=== PATIENT | female | born 1975 | race Caucasian/White ===

== ENCOUNTER → 2020-07-11 11:56 | Outpatient (CLI) | payer BC, SELFPAY | PROVIDERS: PCP Nurse Practitioner; Visit Provider Nurse Practitioner | DX: G47.33 Obstructive sleep apnea (adult) (pediatric) (principal); R53.83 Other fatigue; R40.0 Somnolence | CPT/HCPCS: G0399 ==

== ENCOUNTER → 2021-07-04 12:00 | Outpatient (CLI) | payer BC, SELFPAY | PROVIDERS: PCP Nurse Practitioner; Visit Provider Nurse Practitioner | DX: Z20.822 Contact with and (suspected) exposure to COVID-19 (principal) | CPT/HCPCS: C9803; U0003; U0005 ==

== ENCOUNTER → 2021-08-09 13:17 | Outpatient (CLI) | payer BC, SELFPAY ==
[2021-08-09 14:05] LABS: Adenovirus,PCR Not Detected (NotDetected); Bordetella Pertussis Not Detected (NotDetected); Chlamydophila Pneumoniae, PCR Not Detected (NotDetected); Coronavirus 19, PCR Not Detected (NotDetected); Coronavirus 229E Not Detected (NotDetected); Coronavirus NL63 Not Detected (NotDetected); Coronavirus OC43 Not Detected (NotDetected); Coronovirus HKU1,PCR Not Detected (NotDetected); Human Metapneumovirus Not Detected (NotDetected); Influenza A, PCR Not Detected (NotDetected); Influenza AH1, 2009 Not Detected (NotDetected); Influenza AH1, PCR Not Detected (NotDetected); Influenza AH3,PCR Not Detected (NotDetected); Influenza B, PCR Not Detected (NotDetected); Mycoplasma Pneumoniae, PCR Not Detected (NotDetected); Parainfluenza 1, PCR Not Detected (NotDetected); Parainfluenza 2, PCR Not Detected (NotDetected); Parainfluenza 3, PCR Not Detected (NotDetected); Parainfluenza 4, PCR Not Detected (NotDetected); Respiratory Syncytial Virus Not Detected (NotDetected); Rhinovirus/Enterovirus Not Detected (NotDetected)
[2021-08-09 14:17] LABS: Basophils # 0.1 K/mm3 (0-0.2); Basophils % 1.5 % (0.1-2.0); Eosinophils # 0.4 K/mm3 (0.0-0.4); Eosinophils % 4.5 % (0.1-12.0); Hematocrit 48.1 % (37.0-47.0); Hemoglobin 15.6 g/dL (12.2-16.2); Lymphocytes # 2.6 K/mm3 (0.7-4.5); Lymphocytes % 29.1 % (10-50); Mean Corpuscular HGB Conc 32.5 g/dL (31.8-35.4); Mean Corpuscular Hemoglobin 31.5 pg (27.0-31.2); Mean Platelet Volume 8.9 fl (7.4-10.4); Monocytes # 0.4 K/mm3 (0.1-1.0); Monocytes % 4.7 % (1.7-9.3); Neutrophils # 5.4 K/mm3 (1.8-7.8); Neutrophils % 60.1 % (37.0-80.0); Platelet Count 316 K/mm3 (142-424); Red Blood Count 4.96 M/mm3 (4.20-5.40); Red Cell Distribution Width 13.3 % (11.5-17.5)
== END ==
PROVIDERS: PCP Nurse Practitioner; Visit Provider Nurse Practitioner
DX: Z20.822 Contact with and (suspected) exposure to COVID-19 (principal); J06.9 Acute upper respiratory infection, unspecified
CPT/HCPCS: 36415; 85025; 87581; 87632; 87798; C9803; U0003; U0005

== ENCOUNTER → 2022-03-11 09:35 | Outpatient (CLI) | payer BC, SELFPAY ==
[2022-03-11 18:51] LABS: Chloride 108 mmol/L (98-107); Sodium 141 mmol/L (136-145)
[2022-03-11 18:52] LABS: Potassium 3.6 mmoL/L (3.5-5.1)
[2022-03-11 18:54] LABS: Alanine Aminotransferase 11 U/L (12-78); Albumin/Globulin Ratio 1.4 (1.1-1.8); Alkaline Phosphatase 125 U/L (38-126); Anion Gap 8.6 mEq/L (5-15); Aspartate Amino Transferase 18 U/L (14-36); Bilirubin,Total 0.2 mg/dl (0.2-1.3); Blood Urea Nitrogen 10 mg/dl (7-17); Carbon Dioxide 28 mmol/L (22.0-30.0); Estimated Glomerular Filt Rate 107 ml/min (>60); GFR (African American) 130 ML/MIN (>60); Globulin 2.9 g/dL (1.3-3.2); Total Protein,Serum 6.9 g/dl (6.3-8.2)
[2022-03-11 18:55] LABS: Calcium 9.5 mg/dl (8.4-10.2); Glucose 126 mg/dl (74-100)
[2022-03-11 19:25] LABS: Thyroid Stimulating Hormone 1.19 uIU/mL (0.465-4.68)
== END ==
PROVIDERS: PCP Family Medicine; Visit Provider Family Medicine
DX: I10 Essential (primary) hypertension (principal); R53.83 Other fatigue
CPT/HCPCS: 80053; 84443

== ENCOUNTER → 2023-07-11 23:29 | Outpatient (CLI) | payer BC, SELFPAY ==
[2023-07-11 18:01] LABS: Coronavirus 19, PCR Not Detected (NotDetected); Influenza A, PCR Not Detected (NotDetected); Influenza B, PCR Not Detected (NotDetected)
== END ==
PROVIDERS: PCP Nurse Practitioner; Visit Provider Nurse Practitioner
DX: J06.9 Acute upper respiratory infection, unspecified (principal)
CPT/HCPCS: 87636

== ENCOUNTER 2024-06-03 09:05 | Outpatient (CLI) | payer BC, SELFPAY ==
[2024-06-03 18:34] LABS: Basophils # 0.1 K/mm3 (0-0.2); Basophils % 0.8 % (0.1-2.0); Eosinophils # 0.3 K/mm3 (0.0-0.4); Eosinophils % 3.5 % (0.1-12.0); Hematocrit 47.2 % (37.0-47.0); Hemoglobin 15.3 g/dL (12.2-16.2); Lymphocytes # 2.2 K/mm3 (0.7-4.5); Lymphocytes % 23.6 % (10-50); Mean Corpuscular HGB Conc 32.3 g/dL (31.8-35.4); Mean Corpuscular Hemoglobin 31.8 pg (27.0-31.2); Mean Corpuscular Volume 98.5 fl (81-99); Mean Platelet Volume 10.5 fl (7.4-10.4); Monocytes # 0.5 K/mm3 (0.1-1.0); Monocytes % 5.1 % (1.7-9.3); Neutrophils # 6.2 K/mm3 (1.8-7.8); Platelet Count 289 K/mm3 (142-424); White Blood Count 9.2 K/mm3 (4.8-10.8)
[2024-06-03 19:42] LABS: Albumin Level 4.2 g/dl (3.5-5.0); Chloride 108 mmol/L (98-107); Sodium 140 mmol/L (136-145)
[2024-06-03 19:45] LABS: Alanine Aminotransferase 14 U/L (12-78); Albumin/Globulin Ratio 1.3 (1.1-1.8); Alkaline Phosphatase 120 U/L (38-126); Aspartate Amino Transferase 17 U/L (14-36); Bilirubin,Total 0.5 mg/dl (0.2-1.3); Blood Urea Nitrogen 8 mg/dl (7-17); Calcium 9.2 mg/dl (8.4-10.2); Carbon Dioxide 22 mmol/L (22.0-30.0); Cholesterol 273 mg/dl (140-200); Estimated Glomerular Filt Rate 106 ml/min (>60); GFR (African American) 128 ML/MIN (>60); Globulin 3.2 g/dL (1.3-3.2); Glucose 148 mg/dl (74-100); Total Protein,Serum 7.4 g/dl (6.3-8.2); Triglycerides 282 mg/dl (30-150); VLDL Cholesterol 56 mg/dL (0-40)
[2024-06-03 19:46] LABS: Chol/HDL Ratio 7.6 (1-3.5); HDL Cholesterol 36 mg/dl (40-60)
[2024-06-03 19:56] LABS: Direct LDL Cholesterol 190.98 mg/dL (100-129)
[2024-06-03 20:14] LABS: Thyroid Stimulating Hormone 0.53 uIU/mL (0.465-4.68)
[2024-06-03 21:47] LABS: Creatinine,Urine Random 39 mg/dL (Not Estab.)
[2024-06-03 21:51] LABS: Microalbumin/Creatinine Ratio 39.4
== END 2024-06-03 23:59 | disposition home or self-care (01) ==
LOC: LAB.DROPOF 06-04 12:58
PROVIDERS: PCP Nurse Practitioner; Visit Provider Nurse Practitioner
DX: E78.5 Hyperlipidemia, unspecified (principal); I10 Essential (primary) hypertension; Z72.0 Tobacco use; Z53.20 Procedure and treatment not carried out because of patient's decision for unspecified reasons
CPT/HCPCS: 80050; 80053; 80061; 82043; 82570; 83036; 84443; 85025

== ENCOUNTER 2024-10-15 11:30 | Outpatient (CLI) | payer BC, SELFPAY ==
[2024-10-15 21:24] LABS: Alanine Aminotransferase 17 U/L (12-78); Albumin Level 4.3 g/dl (3.5-5.0); Albumin/Globulin Ratio 1.4 (1.1-1.8); Alkaline Phosphatase 124 U/L (38-126); Aspartate Amino Transferase 18 U/L (14-36); Bilirubin,Total 0.5 mg/dl (0.2-1.3); Blood Urea Nitrogen 9 mg/dl (7-17); Calcium 9.5 mg/dl (8.4-10.2); Carbon Dioxide 25 mmol/L (22.0-30.0); Chloride 107 mmol/L (98-107); Chol/HDL Ratio 3.9 (1-3.5); Cholesterol 179 mg/dl (140-200); Estimated Glomerular Filt Rate 106 ml/min (>60); GFR (African American) 128 ML/MIN (>60); Globulin 3.1 g/dL (1.3-3.2); Glucose 124 mg/dl (74-100); HDL Cholesterol 46 mg/dl (40-60); Sodium 140 mmol/L (136-145); Total Protein,Serum 7.4 g/dl (6.3-8.2); Triglycerides 234 mg/dl (30-150); VLDL Cholesterol 47 mg/dL (0-40)
[2024-10-15 21:34] LABS: Direct LDL Cholesterol 88.51 mg/dL (100-129)
[2024-10-15 21:54] LABS: Thyroid Stimulating Hormone 0.55 uIU/mL (0.465-4.68)
[2024-10-15 21:58] LABS: Creatinine,Urine Random 147 mg/dL (Not Estab.); Hemoglobin A1C 6.3 % (4.0-6.0)
[2024-10-15 22:00] LABS: Microalbumin/Creatinine Ratio 84.2
[2024-10-15 22:12] LABS: Vitamin B12 226 pg/mL (239-931)
== END 2024-10-15 23:59 | disposition home or self-care (01) ==
LOC: LAB.DROPOF 10-17 09:54
PROVIDERS: PCP Nurse Practitioner; Visit Provider Nurse Practitioner
DX: I10 Essential (primary) hypertension (principal); E78.5 Hyperlipidemia, unspecified; I25.10 Atherosclerotic heart disease of native coronary artery without angina pectoris; Z95.1 Presence of aortocoronary bypass graft; R73.01 Impaired fasting glucose
CPT/HCPCS: 80053; 80061; 82043; 82570; 82607; 83036; 84443

== ENCOUNTER 2024-12-26 11:15 | Outpatient (CLI) | payer BC, SELFPAY ==
[2024-12-26 19:12] LABS: Chloride 108 mmol/L (98-107); Potassium 4.3 mmoL/L (3.5-5.1); Sodium 140 mmol/L (136-145)
[2024-12-26 19:15] LABS: Blood Urea Nitrogen 12 mg/dl (7-17); Estimated Glomerular Filt Rate 106 ml/min (>60); GFR (African American) 128 ML/MIN (>60)
[2024-12-26 19:16] LABS: Anion Gap 13.3 mEq/L (5-15); Calcium 9.5 mg/dl (8.4-10.2); Carbon Dioxide 23 mmol/L (22.0-30.0); Glucose 162 mg/dl (74-100)
== END 2024-12-26 23:59 | disposition home or self-care (01) ==
LOC: LAB.DROPOF 22:30
PROVIDERS: PCP Nurse Practitioner Family; Visit Provider Nurse Practitioner Family
DX: R00.2 Palpitations (principal)
CPT/HCPCS: 80048

== ENCOUNTER 2025-04-21 10:35 | Outpatient (CLI) | payer BC, SELFPAY ==
--- OUTSIDE RECORDS SUMMARY | 2017-06-06 17:29 | XMS_ITS | Encounter Summary ---
Author Organization [place] [address] Care Team Providers Care Heating Equipment Repairer Name Role Phone Chan Sim MD Primary Care Provider [phone] Christian Steiner MD Unavailable [phone] Encounter Details Date Type Department Care Team (Late st Contact Info) Description 06/06/2017 5:29 PM EDT Hospital Encounter [facility] [address] [place], [place] [id number] Social History Tobacco Use Types Packs/Day Years Used Date Smoking Tobacco: Former Cigarettes 1 33 1 - 2024 Smokeless Tobacco: Never Alcohol Use Standard Drinks/Week Comments No 0 (1 standard drink = 0.6 oz pur e alcohol) [facility] Utilities Answer Date Recorded In the past 12 months has [employer] electric, gas, oil, or water [employer] threatened to shut off services in your home? No 08/27/2024 Overall Financial Resource Strain (CARDIA) Answe r Date Recorded How hard is it for you to pa y for the very basics like food, housing, medical care, and heating? Not hard at all 08/27/2024 PHQ-2 Answer Date Recorded PHQ-2 Total Score 0 08/27/2024 [facility] [place] of Occupat ional Health - Occupational Stress Questionnaire Answer Date Recorded Do you feel stress - tense, restless, nervous, or anxious, or unable to sleep at night because your mind is troubled all the time - these days? Only a little 08/27/2024 Exercise Vital Sign Answer Date Recorde d On average, how many days pe r week do you engage in moderate to strenuous exercise (like a brisk walk)? 5 days 08/27/2024 On average, how many minutes do you engage in exercise at this level? 30 min 08/27/2024 Hunger Vital Sign Answer Date Recorded Within the past 12 months, y ou worried that your food would run out before you got the money to buy more. Never true 08/27/19 25 Within the past 12 months, t he food you bought just didn't last and you didn't have money to get more. Never true 08/27/2024 [facility] IP Transportation Answer D ate Recorded In the past 12 months, has l ack of reliable transportation kept you from medical appointments, meetings, work or from getting things needed for daily living? No 08/27/2024 Sexually Active Control Partners Comments Yes Male Comments No Sex and Gender Information Value Date Recorded Sex Assigned at Not on file Legal Sex Female 3:45 AM EDT Gender Identity Not on file Sexual Orientation Not on file COVID-19 Exposure Response Date Recorded In the last month, have you been in contact with someone who was confirmed or suspected to have Coronavirus / COVID-19? No / Unsure 07/16/2021 9:31 AM EST documented as of this encounter Functional Status * Alcohol Screening Score Answer Date of Assessment Author 0 08/24/2024 1:00 PM Tio Leonard RN * Drug Screening Score Answer Date of Assessment Author 0 08/24/2024 1:00 PM Tio Leonard RN * Question Answer Date of Assessment Author How often do you have a drin k containing alcohol? 0 08/24/2024 1:00 PM Deion Leonard RN How many drinks containing a lcohol do you have on a typical day when you are drinking? 0 08/24/2024 1:00 PM Deion Leonard RN How often do you have six or more drinks on one occasion? 0 08/24/2024 1:00 PM Elijah Leonard RN AUDIT-C to Determine Rows 4-10 0 08/24/2024 1:00 PM Deion Leonard RN * Is the person deaf or does he/she have serious difficulty hearing? Answer Date of Assessment Author No 07/13/2014 4:12 PM Mariely Watkins RN * Is the person blind or does he/she have serious difficulty seeing even when wearing glasses? Answer Date of Assessment Author No 07/13/2014 4:12 PM Mariely Watkins RN * Does this person have serious difficulty walking or climbing stairs? Answer Date of Assessment Author No 07/13/2014 4:12 PM Mariely Watkins RN * Does this person have difficulty dressing or bathing? Answer Date of Assessment Author No 07/13/2014 4:12 PM Mariely Watkins RN * Because of a physical, mental or emotional condition, does this person have difficulty doing errands alone such as visiting a doctor's office or shopping? Answer Date of Assessment Author No 07/13/2014 4:12 PM Mariely Watkins RN * Question Answer Date of Assessment Author Little interest or pleasure in doing things 0 08/27/2024 12:28 PM Elle Neil BS W Feeling down, depressed, or hopeless 0 08/08 12:28 PM Elle Neil INDUCTION HEATING EQUIPMENT SETTER PHQ-2 Total Score 0 08/27/2024 12:28 PM Elle Neil BSW * PHQ-9 Total Score Answer Date of Assessment Author 0 08/27/2024 12:28 PM Elle Neil INDUCTION HEATING EQUIPMENT SETTER * Suicide Severity Rating Answer Date of Assessment Author No Risk 08/24/2024 8:42 AM Ly Horne RN * [place] Suicide Severity Rating Scale (Q shift for moderate and high) Question Answer Date of Assessment Author 1. In the past month, have y ou wished you were or wished you could go to sleep and not wake up? 0 08/24/2024 8:42 AM Aura Horne RN 2. In the past month, have y ou actually had any thoughts of killing yourself? (If no, skip to question 6) 0 08/24/2024 8:42 AM Aura Horne RN 6. Have you ever done anything, started to do anything, or prepared to do anything to end your life? 0 08/24/2024 8:42 AM Bridget Horne RN documented as of this encounter Mental Status * Because of a physical, mental or emotional condition, does this person have serious difficulty concentrating, remembering or making decisions? Answer Entry Date Author No 07/13/2014 4:12 PM EST Mariely Echols RN documented in this encounter Plan of Treatment Upcoming Encounters Date Type Department Care Team (Late st Contact Info) Description 09/12/2025 9:30 AM EST Office Visit [facility] [place] [id number] Christian Steiner MD [address] [place] [address] documented as of this encounter Goals Goal Patient Goal Type Associated Problems Recent Progress Patient-Stated? Author Blood Pressure < 140/90 Blood Pressure 130/76(2024 9:26 AM EDT) Roberto Carlos Bella MD Maintain a healthy diet, exercise regularly and maintain an ideal body weight General No Roberto Carlos Watkins MD Stay Tobacco Free Lifestyle Roberto Carlos Bella MD documented as of this encounter Visit Diagnoses Not on filedocumented in this encounter Care Teams Heating Equipment Repairer Relationship Specialty Start Date End Date Chan Sim MD [facility] [address] [place] [address] PCP - General Family Medicine 07/15/14 Christian Steiner MD [address] [place] [address] Physician Internal Medicine-Interventional Cardiology 10/24/14 documented as of this encounter
--- OUTSIDE RECORDS SUMMARY | 2025-02-25 13:05 | XMS_ITS | Encounter Summary ---
Author Organization [place] [address] Care Team Providers Care Orthopaedic General Name Role Phone Chan Sim MD Primary Care Provider [phone] Christian Steiner MD Unavailable [phone] Reason for Referral * Echo (Routine) - Authorization Not Needed Specialty Diagnoses / Procedures Referred By Contac t Referred To Contact Radiology Diagnoses ASHD (arteriosclerotic heart disease) Essential hypertension Familial hyperlipidemia Type 2 diabetes mellitus without complication, without long-term current use of insulin (HCC) Procedures EC ECHOCARDIOGRAM COMPLETE W DOPPLER AND COLOR FLOW MAPPING Christian Steiner MD [address] [place] [address] Phone: tel: fax: Referral ID Status Reason Start Date Expiration Date Visits Requested Visits Authorized [id number] Authorization Not Needed 12/27/2024 12/27/2026 1 1 Reason for Visit * Echo (Routine) - Authorization Not Needed Specialty Diagnoses / Procedures Referred By Contac t Referred To Contact Radiology Diagnoses ASHD (arteriosclerotic heart disease) Essential hypertension Familial hyperlipidemia Type 2 diabetes mellitus without complication, without long-term current use of insulin (HCC) Procedures EC ECHOCARDIOGRAM COMPLETE W DOPPLER AND COLOR FLOW MAPPING Christian Steiner MD [address] [place] [address] Phone: tel: fax: Referral ID Status Reason Start Date Expiration Date Visits Requested Visits Authorized [id number] Authorization Not Needed 12/27/2024 12/27/2026 1 1 Encounter Details Date Type Department Care Team (Latest Contact Info) Description 02/25/2025 1:05 PM EDT - 02/25/2025 11:59 PM EDT Hospital Encounter [facility] [address] [place] [address] Drive [address] [place] [address] Christian Steiner MD [address] [place] [address] ASHD (arteriosclerotic heart disease); Essential hypertension; Familial hyperlipidemia; Type 2 diabetes mellitus without complication, without long-term current use of insulin (HCC) Discharge Disposition: Home or Self Care Social History Tobacco Use Types Packs/Day Years Used Date Smoking Tobacco: Former Cigarettes 1 33 1 992 - 2024 Smokeless Tobacco: Never Alcohol Use Standard Drinks/Week Comments No 0 (1 standard drink = 0.6 oz pur e alcohol) [facility] Utilities Answer Date Recorded In the past 12 months has [employer] electric, gas, oil, or water [employer] threatened to shut off services in your home? No 08/27/2024 Overall Financial Resource Strain (CARDIA) Answe r Date Recorded How hard is it for you to pa y for the very basics like food, housing, medical care, and heating? Not hard at all 08/27/2024 PHQ-2 Answer Date Recorded PHQ-2 Total Score 0 08/27/2024 [facility] [place] of Occupat ional Health - Occupational Stress [...] money to get more. Never true 08/27/[address] [facility] IP Transportation Answer D ate Recorded In [...] on file Sexual Orientation Not on file documented as of this encounter Functional Status * Is the person deaf or does [...] No 07/13/2014 4:12 PM Mariely Watkins RN documented as of this encounter Mental Status * Because of a physical, mental or emotional condition, does this person have serious difficulty concentrating, remembering or making decisions? Answer Entry Date Author No 07/13/2014 4:12 PM Mariely Watkins RN documented in this encounter Medications at Time of Discharge albuterol (PROVENTIL HFA;VENTOLIN HFA) 90 mcg/actuation Inhl HFA Aerosol Inhaler INHALE 2 PUFFS INTO THE LUNGS EVERY 4 TO 6 HOURS NEEDED FOR SHORTNESS OF BREATH OR WHEEZING. 11/18/2024 aspirin 81 mg Oral Tablet, ChewableIndications: ASHD (arteriosclerotic heart disease),Essential hypertension,[place] hyperlipidemia,S/P CABG (coronary artery bypass graft) Take 1 Tablet by mouth daily. 90 Tablet 3 10/01/2024 atorvastatin (LIPITOR) 80 mg Oral TabletIndications: HD (arteriosclerotic heart disease),S/P CABG (coronary artery bypass graft),Essential hypertension,[place] hyperlipidemia Take 1 Tablet by mouth nightly. 90 Tablet 1 12/02/2024 carvediloL (COREG) 6.25 mg Oral Tablet Take 1 Tablet by mouth 2 times daily. 60 Tablet 3 11/05/2024 clopidogreL (PLAVIX) 75 mg Oral TabletIndications: HD (arteriosclerotic heart disease),Essential hypertension,[place] hyperlipidemia,S/P CABG (coronary artery bypass graft) Take 1 Tablet by mouth daily. 90 Tablet 3 10/01/2024 cyanocobalamin 100 mcg Oral Tablet Take by mouth daily. ezetimibe (ZETIA) 10 mg Oral TabletIndications:Fa milial hyperlipidemia Take 1 Tablet by mouth daily. 30 Tablet 11 12/02/2024 FARXIGA 10 mg Oral Tablet 12/01/2024 fluticasone propionate (FLONASE) 50 mcg/actuation Nasl [place], Suspension 1 [place] in each nostril daily. losartan (COZAAR) 100 mg Oral TabletIndications:Es sential hypertension Take 1 Tablet by mouth daily. 90 Tablet 1 12/02/2024 ONETOUCH ULTRA TEST Misc Strip TEST BLOOD SUGAR 3 TIMES DAILY AND NEEDED 10/24/2024 documented as of this encounter Discharge Disposition Disposition Code Departure Means Destination Home or Self Care documented in this encounter Plan of Treatment Upcoming Encounters Date Type Department Care Team (Late st Contact Info) Description 09/12/2025 9:30 AM EST Office Visit [facility] [address] [address] Christian Steiner MD [address] [place] [address] documented as of this encounter Goals Goal Patient Goal Type Associated Problems Recent Progress Patient-Stated? Author Blood Pressure < 140/90 Blood Pressure 130/76(2024 9:26 AM EDT) Roberto Carlos Bella MD Maintain a healthy diet, exercise regularly and maintain an ideal body weight General No Roberto Carlos Watkins MD Stay Tobacco Free Lifestyle No Roberto Carlos Watkins MD documented as of this encounter Procedures Procedure Name Priority Date/Time Associated Diagnosis Comments EC ECHOCARDIOGRAM COMPLETE W DOPPLER AND COLOR FLOW MAPPING Routine 02/25/2025 1:54 PM EDT ASHD (arteriosclerotic heart disease) Essential hypertension Familial hyperlipidemia Type 2 diabetes mellitus without complication, without long-term current use of insulin (HCC) documented in this encounter Results * EC ECHOCARDIOGRAM COMPLETE W DOPPLER AND COLOR FLOW MAPPING (02/25/2025 1:54 PM EDT) Ejection Fraction 55-60% PYRAMIS MITRAL REGURGITATION no PYRAMIS AORTIC STENOSIS no PYRAMIS LV DIASTOLIC PLAX 4.2 cm PYRAMIS Anatomical Region Laterality Modality Electrocardiogra phy 02/25/2025 1:10 PM EDT Impressions 02/26/2025 9:01 AM EDT Conclusions * Left ventricular chamber dimension is normal. * Left ventricular function is normal with an estimated ejection fraction of 55-60%. * Left ventricular segmental wall motion is grossly normal, however endocardial definition is limited. * The left ventricular diastolic function is indeterminate. * Right ventricular systolic function is normal. * There is trace tricuspid valve regurgitation. * Unable to estimate pulmonary artery systolic pressure. Narrative Procedure Note Sheryl White DO - 02/26/2025 IMPRESSION Conclusions * Left ventricular chamber dimension is normal. * Left ventricular function is normal with an estimated ejectionfraction of 55-60%. * Left ventricular segmental wall motion is grossly normal, however endocardial definition is limited. * The left ventricular diastolic function is indeterminate. * Right ventricular systolic function is normal. * There is trace tricuspid valve regurgitation. * Unable to estimate pulmonary artery systolic pressure. Christian Steiner MD IMG ECHO ORDERABLES Final Resul t documented in this encounter Visit Diagnoses Diagnosis ASHD (arteriosclerotic heart disease) Coronary atherosclerosis of unspecified type of vessel, [place] or graft Essential hypertension Unspecified essential hypertension Familial hyperlipidemia Other and unspecified hyperlipidemia Type 2 diabetes mellitus without complication, without long-term current use of insulin (HCC) documented in this encounter Care Teams Orthopaedic General Relationship Specialty Start Date End Date Chan Sim MD [address] [facility] [address] [place] [address] PCP - General Family Medicine 07/15/14 Christian Steiner MD [address] [place] [address] Physician Internal Medicine-Interventional Cardiology 10/24/14 documented as of this encounter
--- OUTSIDE RECORDS SUMMARY | 2025-03-15 10:30 | XMS_ITS | Encounter Summary ---
Author Organization [place] [address] Care Team Providers Care Transmission System Operator Name Role Phone Chan Sim MD Primary Care Provider [phone] Christian Steiner MD Unavailable Encounter Details Date Type Department Care Team (Latest Contact Info) Description 03/15/2025 10:30 AM EDT - 03/15/2025 11:59 PM EDT Hospital Encounter [facility] [address] [facility] [place] [address] ASHD (arteriosclerotic heart disease); S/P CABG (coronary artery bypass graft); Familial hyperlipidemia; Type 2 diabetes mellitus without complication, without long-term current use of insulin (HCC); Essential hypertension Discharge Disposition: Home or Self Care Social History Tobacco Use Types Packs/Day Years Used Date Smoking Tobacco: Former Cigarettes 1 33 1 992 - 2024 Smokeless Tobacco: Never Alcohol Use Standard Drinks/Week Comments No 0 (1 standard drink = 0.6 oz pur e alcohol) [facility] Utilities Answer Date Recorded In the past 12 months has [employer] electric, gas, oil, or water company threatened to shut off services in your home? No 08/27/2024 Overall Financial Resource Strain (CARDIA) Answe r Date Recorded How hard is it for you to pa y for the very basics like food, housing, medical care, and heating? Not hard at all 08/27/2024 PHQ-2 Answer Date Recorded PHQ-2 Total Score 0 08/27/2024 [facility] [place] of Occupat ional Health - Occupational Stress [...] money to get more. Never true 08/27/2024 [facility] IP Transportation Answer D ate Recorded In [...] 12/01/2024 fluticasone propionate (FLONASE) 50 mcg/actuation Nasl [place], Suspension 1 [place] in each nostril daily. losartan (COZAAR) 100 [...] 9:30 AM EST Office Visit [facility] [place] [address] [place] [address] [place] [place] [address] Christian Steiner MD [address] [place] [address] [place] [address] documented as of this encounter Goals Goal Patient Goal Type Associated Problems Recent Progress Patient-Stated? Author Blood Pressure < 140/90 Blood Pressure 130/76(2024 9:26 AM EDT) Roberto Carlos Bella MD Maintain a healthy diet, exercise regularly and maintain an ideal body weight General Roberto Carlos Bella MD Stay Tobacco Free Lifestyle Roberto Carlos Bella MD documented as of this encounter Procedures Procedure Name Priority Date/Time Associated Diagnosis Comments LIPID PANEL REFLEX Routine 03/15/2025 10 :41 AM EDT Familial hyperlipidemia C-REACTIVE PROTEIN HIGH SENSITIVITY Routine 03/15/2025 10:41 AM EDT ASHD (arteriosclerotic heart disease) S/P CABG (coronary artery bypass graft) Essential hypertension HEMOGLOBIN A1C Routine 03/15/2025 10:41 AM EDT Type 2 diabetes mellitus without complication, without long-term current use of insulin (HCC) BASIC METABOLIC PANEL Routine 03/15/2025 10:41 AM EDT ASHD (arteriosclerotic heart disease) S/P CABG (coronary artery bypass graft) documented in this encounter Results * C-REACTIVE PROTEIN HIGH SENSITIVITY (03/15/2025 10:41 AM EDT) CRP-HS 1.54 <=3.00 mg/L 03/15/2025 12:58 PM EDT [employer] Blood VENOUS BLOOD / Unknown Venipuncture / Unknown 03/15/2025 10:41 AM EDT 03/15/2025 10:43 AM EDT Narrative [facility] [employer] [place] [facility] - 03/15/2025 12:58 PM EDT hsCRP Level Relative Risk < 1.0 Low 1.0 - 3.0 Average > 3.0 High Christian Steiner MD CHEMISTRY ORDERABLES Final Resu lt Performing Organization Address [facility] Co de Phone Number [facility] [address] , [address] [place] [phone] * (ABNORMAL) HEMOGLOBIN A1C (03/15/2025 10:41 AM EDT) Hgb A1C 7.6(H) 4.2 - 5.6 % 03/15/2025 12:42 PM EDT [facility] [employer] [place] [facility] Est. Avg Glucose 171 mg/dL 03/15/2025 12:42 PM EDT [facility] [employer] [place] [facility] Blood VENOUS BLOOD / Unknown Venipuncture / Unknown 03/15/2025 10:41 AM EDT 03/15/2025 10:43 AM EDT Narrative [facility] [employer] [place] [facility] - 03/15/2025 12:42 PM EDT REFERENCE RANGE: Normal: 4.0-5.6% Pre-diabetes: 5.7-6.4% Provisional diagnosis of diabetes: >6.4% Hgb F>10% and anything which shortens red cell survival, such as hemolytic anemia, or unstable hemoglobin variants such as HbSS, HbSC, or HbCC, will lower the HbA1c value associated with a given level of glycemic control. Christian Steiner MD CHEMISTRY ORDERABLES Final Resu lt Performing Organization Address [facility]/ZIP Co de Phone Number [facility] [address] , [place] [address] * LIPID PANEL REFLEX (03/15/2025 10:41 AM EDT) Cholesterol 143 <200 mg/dL 03/15/2025 12:59 PM EDT [facility] [employer] [place] [facility] Comment: < 200 Desirable 200 - 239 Borderline High >= 240 High Triglyceride 138 <150 mg/dL 03/15/2025 12:59 PM EDT [facility] Comment: < 150 Normal 150 - 199 Borderline High 200 - 499 High >= 500 Very High HDL 42 >=40 mg/dL 03/15/2025 12:59 PM EDT [facility] Comment: > 60 Optimal 40 - 60 Acceptable < 40 Low LDL Calculated 77 <100 mg/dL 03/15/2025 12:59 PM EDT [facility] Comment: < 100 Optimal 100 - 129 Near or above optimal 130 - 159 Borderline High 160 - 189 High >= 190 Very High The National Institutes of Health (NIH) equation is used for all lipid panels that report calculated LDL (LDL-C). Non-HDL-C Calculated 101 <=129 mg/dL 03/15/2025 12:59 PM EDT [facility], [facility] Comment: <130 Desirable 130-159 Above Desirable 160-189 Borderline High 190-219 High >= 220 Very High Fasting Specimen? Yes None 025 12:59 PM EDT [facility], [facility] Blood VENOUS BLOOD / Unknown Venipuncture / Unknown 03/15/2025 10:41 AM EDT 03/15/2025 10:43 AM EDT us Christian Steiner MD CHEMISTRY ORDERABLES Final Resu lt [facility] [address] [facility], [place] [address] * (ABNORMAL) BASIC METABOLIC PANEL (03/15/2025 10:41 AM EDT) Sodium 140 136 - 145 mmol/L 03/15/2025 12:59 PM EDT [facility] Potassium 3.9 3.5 - 5.0 mmol/L 03/15/2025 12:59 PM EDT [facility] Chloride 105 98 - 107 mmol/L 03/15/2025 12:59 PM EDT [facility] Total CO2 24 22 - 29 mmol/L 03/15/2025 12:59 PM EDT [facility] Anion Gap 11 7 - 16 mmol/L 03/15/2025 12:59 PM EDT [facility] Calcium 9.5 8.6 - 10.4 mg/dL 03/15/2025 12:59 PM EDT [facility], [facility] Glucose Lvl 158(H) 70 - 99 mg/dL 03/15/2025 12:59 PM EDT [facility], [facility] BUN 10 6 - 20 mg/dL 03/15/2025 12:59 PM EDT [facility], [facility] Creatinine 0.55 0.51 - 1.30 mg/dL 03/15/2025 12:59 PM EDT [facility], [facility] eGFR (CKD-EPIcr 2020) 111 >=60 mL/min/1.7 3 m2 03/15/2025 12:59 PM EDT [facility], [facility] Comment:Estimated GFR was ca lculated using the CKD-EPIcr (2020) equation refit without race. The equation is recommended by the National Kidney Foundation - [place] [employer] of Nephrology Task Force. Blood VENOUS BLOOD / Unknown Venipuncture / Unknown 03/15/2025 10:41 AM EDT 03/15/2025 10:43 AM EDT us Christian Steiner MD CHEMISTRY ORDERABLES Final Resu lt [address] , [place] [address] documented in this encounter Visit Diagnoses Diagnosis ASHD (arteriosclerotic heart disease) Coronary atherosclerosis of unspecified type of vessel, [place] or graft S/P CABG (coronary artery bypass graft) Postsurgical aortocoronary bypass status Familial hyperlipidemia Other and unspecified hyperlipidemia Type 2 diabetes mellitus without complication, without long-term current use of insulin (HCC) Essential hypertension Unspecified essential hypertension documented in this encounter Orders Lab Orders Without Results Count Last Ordered D ate First Ordered Date BASIC METABOLIC PANEL 1 03/15/2025 C-REACTIVE PROTEIN HIGH SENSITIVITY 1 03/15 HEMOGLOBIN A1C 1 03/15/2025 LIPID PANEL REFLEX 1 03/15/2025 documented in this encounter Care Teams Transmission System Operator Relationship Specialty Start Date End Date Chan Sim MD [address] [facility] [address] [place] [address] PCP - General Family Medicine 07/15/14 Christian Steiner MD [address] [place] [address] Physician Internal Medicine-Interventional Cardiology 10/24/14 documented as of this encounter
--- OUTSIDE RECORDS SUMMARY | 2025-03-21 09:45 | XMS_ITS | Encounter Summary ---
Author Organization [facility] [place] [address] Care Team Providers Care Inside Sales Supervisor Name Role Phone Chan Sim MD Primary Care Provider [phone] Christian Steiner MD Unavailable [phone] Reason for Visit * Reason Comments Follow-up 3 mo chk labs prior Encounter Details Date Type Department Care Team (Latest Contact Info) Description 03/21/2025 9:45 AM EDT Office Visit [facility] [place] [address] [place] [address] Christian Steiner MD [address] [place] [address] ASHD (arteriosclerotic heart disease) (Primary Dx); Essential hypertension; Familial hyperlipidemia Social History Tobacco Use Types Packs/Day Years Used Date Smoking Tobacco: Former Cigarettes 1 33 1 992 - 2024 Smokeless Tobacco: Never Tobacco Cessation:Counseling Given: No Alcohol Use Standard Drinks/Week Comments No 0 (1 standard drink = 0.6 oz pur e alcohol) [facility] Utilities Answer Date Recorded In the past 12 months has [employer], gas, oil, or water company threatened to shut off services in your home? No 08/27/2024 Overall Financial Resource Strain (CARDIA) Answe r Date Recorded How hard is it for you to pa y for the very basics like food, housing, medical care, and heating? Not hard at all 08/27/2024 PHQ-2 Answer Date Recorded PHQ-2 Total Score 0 08/27/2024 [facility] Occupat ional Health - Occupational Stress [...] money to get more. Never true 08/27/2024 [facility] IP Transportation Answer D ate Recorded [...] on file documented as of this encounter Last Filed Vital Signs Vital Sign Reading Time Taken Comments Blood Pressure 130/76 03/21/2025 9:26 AM EDT Pulse 82 03/21/2025 9:26 AM EDT Temperature - - Respiratory Rate - - Oxygen Saturation 98% 03/21/2025 9:26 AM EDT Inhaled Oxygen Concentration - - Weight 85.7 kg (189 lb) 03/21/2025 9:26 AM EDT Height 172.7 cm (5' 8 ) 03/21/2025 9:26 AM EDT Body Mass Index 28.74 03/21/2025 9:26 AM EDT documented in this encounter Functional Status * Is the [...] Mariely Watkins RN documented in this encounter Progress Notes * Christian Steiner MD - 03/21/2025 9:45 AM EDT Subjective: Patient ID: Gricelda Enciso is a 49 y.o. female. Chief Complaint Patient presents with Follow-up 3 mo chk labs prior Ms. Enciso is here for a scheduled routine follow-up visit No chest, shoulder, arm, back, or jaw pain. None Their chronic cardiac conditions are: Problem List Cardiology Problems Chest pain Hypertension Mixed hyperlipidemia Coronary artery disease involving [place] coronary artery of [place] heart with unstable angina pectoris (HCC) Coronary artery occlusion (HCC) Social History Tobacco Use Smoking Status Former Current packs/day: 0.00 Average packs/day: 1 pack/day for 33.0 years (33.0 ttl pk-yrs) Types: Cigarettes Start date: 1991 Quit date: 2024 Years since quittin.6 Smokeless Tobacco Never Current Outpatient Medications Medication Sig Dispense Refill albuterol (PROVENTIL HFA;VENTOLIN HFA) 90 mcg/actuation Inhl HFA Aerosol Inhaler INHALE 2 PUFFS INTO THE LUNGS EVERY 4 TO 6 HOURS NEEDED FOR SHORTNESS OF BREATH OR WHEEZING. aspirin 81 mg Oral Tablet, Chewable Take 1 Tablet by mouth daily. 90 Tablet 3 atorvastatin (LIPITOR) 80 mg Oral Tablet Take 1 Tablet by mouth nightly. 90 Tablet 1 carvediloL (COREG) 6.25 mg Oral Tablet Take 1 Tablet by mouth 2 times daily. 60 Tablet 3 clopidogreL (PLAVIX) 75 mg Oral Tablet Take 1 Tablet by mouth daily. 90 Tablet 3 cyanocobalamin 100 mcg Oral Tablet Take by mouth daily. ezetimibe (ZETIA) 10 mg Oral Tablet Take 1 Tablet by mouth daily. 30 Tablet 11 FARXIGA 10 mg Oral Tablet fluticasone propionate (FLONASE) 50 mcg/actuation Nasl [place], Suspension 1 [place] in each nostril daily. losartan (COZAAR) 100 mg Oral Tablet Take 1 Tablet by mouth daily. 90 Tablet 1 ONETOUCH ULTRA TEST Misc Strip TEST BLOOD SUGAR 3 TIMES DAILY AND NEEDED No current facility-administered medications for this visit. Patients past medical, family and social histories were reviewed and updated. There were no changesexcept as noted. Review of Systems Constitutional: Negative for weight loss. Cardiovascular: Negative for chest pain, dyspnea on exertion, irregular heartbeat and palpitations. All other systems reviewed and are negative. Objective: Patient Vitals for the past 24 hrs: Pulse BP BP Location Patient Position 03/21/25 0926 82 130/76 Left arm Sitting Body mass index is 28.74 kg/m??. Physical Exam Constitutional: She appears healthy. HENT: Nose: No nasal discharge. Eyes: Conjunctivae are normal. Neck: No JVD present. Cardiovascular: Normal rate, regular rhythm, S1 normal, S2 normal and normal heart sounds. Exam reveals no S3. No murmur heard. Pulmonary/Chest: Breath sounds normal. She has no wheezes. She has no rales. Abdominal: She exhibits no distension. Musculoskeletal: General: No edema. Neurological: She is alert. Skin: Skin is warm. No pallor. Relevant Studies No results found for this visit on 03/21/25. 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 Familial hyperlipidemia ldl 214, lp (a) normal, - Ldl 77 continue lipitor 80 and zetia 3. HTN continue coreg 6.25 mg po bid, losartan 4. Tobacco abuse- now quit 5. AODM 6. Palpitations with 3% PVCs holter 2024 Losing weight- will see how ldl improves. Pt wants to try ozempic- I encouraged this for CV risk reduction. Fu in 6 months lipid panel bmp prior to visit documented in this encounter Miscellaneous Notes * Patient Instructions - Christal Cervantes CMA - 03/21/2025 9:45 AM EDT You may receive a survey via phone, mail or e-mail, regarding your visit today. Your feedback is important to us. We ask that you please take a few minutes to fill out the survey. You were assisted by Dr. Steiner and DEYSI Siegel. Thank You for choosing [facility]. We sincerely thank you for the opportunity to be a part of your care. BLOOD WORK INSTRUCTIONS Blood work needs to be completed one week prior to return. Nothing to eat or drink for 8 hours prior to draw. May drink water prior to draw. You can have your labs done at any [facility] lab. Labs orders are in the computer. Important information: -Labs have been ordered. Please have completed 1 week prior to next office visit - Please return in [address] Steiner If you have any additional questions or concerns, please reach out to us via LXSNt or by phone at [phone]. * Addendum Note - Christal Cervantes CMA - 03/21/2025 9:45 AM EDTAddended by: CHRISTAL CERVANTES on: 03/21/2025 09:49 AM Modules accepted: Orders documented in this encounter Plan of Treatment Upcoming Encounters Date Type Department Care Team (Late st Contact Info) Description 09/12/2025 9:30 AM EST Office Visit [facility] [address] [address] Christian Steiner MD [address] [place] [id number] Scheduled Orders Name Type Priority Associated Diagnoses Orde r Schedule LIPID PANEL REFLEX Lab Routine ASHD (arteriosclerotic heart disease) Essential hypertension Familial hyperlipidemia 1 Occurrences starting 03/21/2025 until 03/21/2026 BASIC METABOLIC PANEL Lab Routine ASHD (arteriosclerotic heart disease) Essential hypertension Familial hyperlipidemia 1 Occurrences starting 03/21/2025 until 03/21/2026 documented as of this encounter Goals Goal Patient Goal Type Associated Problems Recent Progress Patient-Stated? Author Blood Pressure < 140/90 Blood Pressure 130/76(2024 9:26 AM EDT) Roberto Carlos Bella MD Maintain a healthy diet, exercise regularly and maintain an ideal body weight General Roberto Carlos Bella MD Stay Tobacco Free Lifestyle Roberto Carlos Bella MD documented as of this encounter Visit Diagnoses Diagnosis ASHD (arteriosclerotic heart disease)- Primary Coronary atherosclerosis of unspecified type of vessel, [place] or graft Essential hypertension Unspecified essential hypertension Familial hyperlipidemia Other and unspecified hyperlipidemia documented in this encounter Care Teams Inside Sales Supervisor Relationship Specialty Start Date End Date Chan Sim MD [facility] [address] [place] [address] PCP - General Family Medicine 07/15/14 Christian Steiner MD [address] [place] [phone] Physician Internal Medicine-Interventional Cardiology 10/24/14 documented as of this encounter
[2025-04-21 15:33] LABS: Hematocrit 45.0 % (37.0-47.0); Hemoglobin 14.8 g/dL (12.2-16.2); Immature Granulocytes % 0.2 %; Mean Corpuscular HGB Conc 32.9 g/dL (31.8-35.4); Mean Corpuscular Hemoglobin 30.6 pg (27.0-31.2); Mean Corpuscular Volume 93.2 fl (81-99); Nucleated Red Blood Cells % 0 %; Platelet Count 238 K/mm3 (142-424); Red Blood Count 4.83 M/mm3 (4.20-5.40); Red Cell Distribution Width-SD 45.1 fL; White Blood Count 5.9 K/mm3 (4.8-10.8)
[2025-04-21 18:11] LABS: Alanine Aminotransferase 17 U/L (12-78); Albumin Level 4.3 g/dl (3.5-5.0); Albumin/Globulin Ratio 1.3 (1.1-1.8); Alkaline Phosphatase 159 U/L (38-126); Anion Gap 11.0 mEq/L (5-15); Aspartate Amino Transferase 22 U/L (14-36); Bilirubin,Total 0.8 mg/dl (0.2-1.3); Blood Urea Nitrogen 10 mg/dl (7-17); Calcium 9.3 mg/dl (8.4-10.2); Carbon Dioxide 27 mmol/L (22.0-30.0); Chloride 104 mmol/L (98-107); Cholesterol 177 mg/dl (140-200); Creatinine,Serum 0.60 mg/dl (0.52-1.04); Estimated Glomerular Filt Rate 106 ml/min (>60); GFR (African American) 128 ML/MIN (>60); Globulin 3.2 g/dL (1.3-3.2); Glucose 155 mg/dl (74-100); HDL Cholesterol 49 mg/dl (40-60); Potassium 4.0 mmoL/L (3.5-5.1); Sodium 138 mmol/L (136-145); Total Protein,Serum 7.5 g/dl (6.3-8.2); Triglycerides 157 mg/dl (30-150)
[2025-04-21 18:47] LABS: Hemoglobin A1C 7.6 % (4.0-6.0)
[2025-04-21 19:01] LABS: Vitamin B12 > 1000 pg/mL (239-931)
--- OUTSIDE RECORDS SUMMARY | 2025-04-22 10:47 | XMS_ITS | Patient Health Record ---
Author Organization [facility] Address [address] [facility] [address] [id number] Care Team Providers Care Snuff Blender Name Role Phone Tio Sim Primary Care Provider Allergies No Known Allergies Reason For Referral No Information Medications Medication SIG (Take, Route, Frequency, Duration) Notes Start Date End Date Status methylPREDNISolone 4 MG as directed - 6 tabs on day 1, 5 tabs on day 2, 4 tabs on day 3, 3 tabs on day 4, 2 tabs on day 5, 1 tab on day 6 orally 08/09/2021 Active amLODIPine Besylate 10 MG 1 tab(s) orally once a day Active B-12 1000 MCG 1 tab(s) orally once a day 07/09/2018 Active Azithromycin 250 MG 2 tablets on the first day, then 1 tablet daily for 4 days orally 08/09/2021 Active Atenolol 50 MG 1 tab(s) orally once a day; Duration: 30 day(s) Active CoQ-10 100 MG 1 cap(s) orally once a day 07/03/2020 Active Xhmkoxldr-Wpwuicfx-DE 30-2-10 MG/5ML 5 mL orally 4 times a day as needed for cough 08/09/2021 Active Rosuvastatin Calcium 10 MG 1 tab(s) orally once a day; Duration: 30 day(s) 07/03/2020 Active buPROPion HCl ER (SR) 150 MG Take 1 tablet by mouth once daily.; Duration: 30 Active CareTouch CPAP & BIPAP Hose 1 DIRECTED; Duration: [address]24 DAYS nasal continuous positive airway pressure, AutoPAP 6/16cm with a heated humidifier *Please review and pick correct strength-formula tion from Medispan options. If intended option is not shown, discontinue and re 09/07/2020 Not-Taking Vitamin D3 125 MCG (5000 UT) 1 tab(s) orally once a day; Duration: 30 day(s) 07/09/2018 Active CPAP MASK DIRECTED *Please review for potential replacement for e-prescription and drug interaction check* 09/07/2020 Not-Taking Immunizations Vaccine Route Administration Date Status Comme nts Tetanus Tdap-Adacel (over 7yrs) IM Intramuscular 01/23/2020 Administered Problems Problem Type SNOMED Code ICD Code Onset Dates Problem Status W/U Status Risk Notes Problem Vitamin D deficiency (17641399) Vitamin D deficiency (E55.9) Active confirmed Problem Vitamin B12 deficiency (360195604) Vitamin B12 deficiency (E53.8) Active confirmed Problem Essential hypertension (84084019) Essential hypertension (I10) Active confirmed Problem Anxiety (66014030) Situational anxiety (F41.8) Active confirmed Problem Obstructive sleep apnea syndrome (76064219) ABHISHEK (obstructive sleep apnea) (G47.33) Active confirmed Problem Hyperlipidaemia (34257233) Hyperlipidemia, unspecified hyperlipidemia type (E78.5) Active confirmed Problem Tobacco use (397354736) Tobacco use disorder (F17.200) Active confirmed Problem Somnolence (07100709) Has daytime drowsiness (R40.0) Active confirmed Plan Of Treatment No Information Insurance Providers Payer Name Payer Address Payer Phone Subscriber Number Group Number Insured Name Patient Relationship to Insured Coverage Start Date Coverage End Date [facility] [address] [place] [address] [id number] Malia Enciso Self - patient is the insured Medications Administered Medication Instructions Date of Administration Dosage Notes B-12 01/31/2020 1 mL B-12 02/07/2020 1 mL B-12 02/14/2020 1 mL Medical (General) History Surgical History Surgery Date(Month/Year) gallbladder
--- OUTSIDE RECORDS SUMMARY | 2025-04-22 10:47 | XMS_ITS | Encounter Summary ---
Author Organization [place] [address] Care Team Providers Care Finance Director Name Role Phone Chan Sim MD Primary Care Provider [phone] Christian Steiner MD Unavailable [phone] Reason for Visit * Reason Onset Date Comments Results 02/26/2025 Encounter Details Date Type Department Care Team (Latest Contact Info) Description 02/26/2025 Results Follow-Up [facility] [address] [place] [address] Lesli Giraldo, SCHEDULER MAINTENANCE [address] [place] [address] EC ECHOCARDIOGRAM COMPLETE W DOPPLER AND COLOR FLOW MAPPING Social History Tobacco Use Types Packs/Day Years Used Date Smoking Tobacco: Former Cigarettes 1 33 1 - 2024 Smokeless Tobacco: Never Alcohol Use Standard Drinks/Week Comments No 0 (1 standard drink = 0.6 oz pur e alcohol) [facility] Utilities Answer Date Recorded In the past 12 months has e electric, gas, oil, or water company threatened to shut off services in your home? No 08/27/2024 Overall Financial Resource Strain (CARDIA) Answe r Date Recorded How hard is it for you to pa y for the very basics like food, housing, medical care, and heating? Not hard at all 08/27/2024 PHQ-2 Answer Date Recorded PHQ-2 Total Score 0 08/27/2024 [facility] of Occupat ional Health - Occupational Stress [...] money to get more. Never true 08/27/2024 [facility] IP Transportation Answer D ate Recorded In [...] Mariely Watkins RN documented in this encounter Plan of Treatment Upcoming Encounters Date Type Department Care Team (Late st Contact Info) Description 09/12/2025 9:30 AM EST Office Visit [facility] [address] [address] Christian Steiner MD [address] [place] [phone] documented as of this encounter Goals Goal Patient Goal Type Associated Problems Recent Progress Patient-Stated? Author Blood Pressure < 140/90 Blood Pressure 130/76(2024 9:26 AM EDT) Roberto Carols Bella MD Maintain a healthy diet, exercise regularly and maintain an ideal body weight General No Roberto Carlos Watkins MD Stay Tobacco Free Lifestyle Roberto Carlos Bella MD documented as of this encounter Visit Diagnoses Not on filedocumented in this encounter Care Teams Finance Director Relationship Specialty Start Date End Date Chan Sim MD [facility] [place] [address] [place] [address] PCP - General Family Medicine 07/15/14 Christian Steiner MD [address] [place] [phone] Physician Internal Medicine-Interventional Cardiology 10/24/14 documented as of this encounter
--- OUTSIDE RECORDS SUMMARY | 2025-04-22 10:47 | XMS_ITS | Encounter Summary ---
Author Organization [facility] [place] [place] [address] Care Team Providers Care Yeast Culture Developer Name Role Phone Chan Sim MD Primary Care Provider [phone] Christian Steiner MD Unavailable [phone] Encounter Details Date Type Department Care Team (Latest Contact Info) Description 03/21/2025 Travel Social History Tobacco Use Types Packs/Day Years Used Date Smoking Tobacco: Former Cigarettes 1 33 1 992 - 2024 Smokeless Tobacco: Never Alcohol Use Standard Drinks/Week Comments No 0 (1 standard drink = 0.6 oz pur e alcohol) [facility] Utilities Answer Date Recorded In the [...] Date Recorded PHQ-2 Total Score 0 08/27/2024 [facility] of Occupat ional Health - Occupational Stress [...] money to get more. Never true 08/27/2024 [facility] IP Transportation Answer D ate Recorded [...] AM EST Office Visit [facility] [address] [place] [address] [place] [id number] Christian Steiner MD [address] [place] [address] [place] [id number] documented as of this encounter Goals [...] on filedocumented in this encounter Care Teams Yeast Culture Developer Relationship Specialty Start Date End Date Chan Sim MD [address] [facility] [address] [place] [address] PCP - General Family Medicine 07/15/14 Christian Steiner MD [address] [place] [address] Physician Internal Medicine-Interventional Cardiology 10/24/14 documented as of this encounter
--- OUTSIDE RECORDS SUMMARY | 2025-04-22 10:47 | XMS_ITS | Encounter Summary ---
Author Organization [place] [address] Care Team Providers Care Sales And Marketing Associate Name Role Phone Chan Sim MD Primary Care Provider [phone] Christian Steiner MD Unavailable Reason for Visit * Reason Onset Date Comments Medication Question 04/08/2025 SWP, rayo Mcgill to use inhaler Encounter Details Date Type Department Care Team (Late st Contact Info) Description 04/08/2025 Telephone [facility] [place] [address] [place] [address] Christian Steiner MD [address] [place] [address] Medication Question (SWPmarilyn ok to use inhaler) Social History Tobacco Use Types Packs/Day Years Used Date Smoking Tobacco: Former Cigarettes 1 33 1 992 - 2024 Smokeless Tobacco: Never Alcohol Use Standard Drinks/Week Comments No 0 (1 standard drink = 0.6 oz pur e alcohol) [facility] Utilities Answer Date Recorded In the past 12 months has [facility] [facility] electric, gas, oil, or water company threatened to shut off services in your home? No 08/27/2024 Overall Financial Resource Strain (CARDIA) Answe r Date Recorded How hard is it for you to pa y for the very basics like food, housing, medical care, and heating? Not hard at all 08/27/2024 PHQ-2 Answer Date Recorded PHQ-2 Total Score 0 08/27/2024 [facility] of Occupat ional Health - Occupational [...] money to get more. Never true 08/27/2024 [facility] IP Transportation Answer D ate Recorded In [...] Mariely Watkins RN documented in this encounter Miscellaneous Notes * Telephone Encounter - Christal Cervantes CMA - 04/09/2025 12:32 PM EDT Noted. Closing encounter. * Telephone Encounter - Cara Roberts - 04/09/2025 12:29 PM EDT SWP informed patient per JANUARY Clark OK to use inhaler. * Telephone Encounter - Christal Cervantes CMA - 04/09/2025 11:30 AM EDT Called pt to inform that they are able to use inhaler per JANUARY Clark. No answer. HIPAA compliant VMLTCB * Telephone Encounter - Jazmine Pinzon - 04/08/2025 12:04 PM EDT Patient is calling to ask if she can take her inhaler Proventil Please call and advise documented in this encounter Plan of Treatment Upcoming Encounters Date Type Department Care Team (Late st Contact Info) Description 09/12/2025 9:30 AM EST Office Visit [facility] [address] [place] [phone] Christian Steiner MD [address] [place] [address] documented as of this encounter Goals Goal [...] on filedocumented in this encounter Care Teams Sales And Marketing Associate Relationship Specialty Start Date End Date Chan Sim MD [address] [facility] [address] [place] [address] PCP - General Family Medicine 07/15/14 Christian Steiner MD [address] [place] [address] Physician Internal Medicine-Interventional Cardiology 10/24/14 documented as of this encounter
--- OUTSIDE RECORDS SUMMARY | 2025-04-22 10:47 | XMS_ITS | Encounter Summary ---
Author Organization [place] [address] Care Team Providers Care Charge Nurse Name Role Phone Chan Sim MD Primary Care Provider [phone] Christian Steiner MD Unavailable [phone] Encounter Details Date Type Department Care Team (Late st Contact Info) Description 06/07/2017 Lab Requisition [facility] [place] [address] Felix Hernandez, DPM [address] [facility], [address] [place] [address] Cellulitis of toe of right foot Social History Tobacco Use Types Packs/Day Years Used Date Smoking Tobacco: Every Day Cigarettes Smokeless Tobacco: Never Alcohol Use Standard Drinks/Week Comments No 0 (1 standard drink = 0.6 oz pur e alcohol) Sexually Active Control Partners Comments Yes Male [...] 9:30 AM EST Office [place] [address] Christian Steiner MD [address] [place] [address] documented as of this encounter Goals Goal [...] Procedure Name Priority Date/Time Associated Diagnosis Comments WOUND CULTURE (STAIN INCLUDED) STAT 06/07/2017 9:10 AM EDT Cellulitis of toe of right foot documented in this encounter Results * (ABNORMAL) WOUND CULTURE (06/07/2017 9:10 AM EDT) Culture Positive Growth(A) 2016 4:18 PM EDT [facility] Culture Abundant growth of Staphylococcus lugdunensis SUSCEPTIBI LITY RESULT 06/10/2017 4:18 PM EDT [facility] Stain No WBCs 06/10/2017 4:18 PM EDT [facility] Stain Moderate Gram positive cocci 06/10/2017 4:18 PM EDT [facility] Stain Rare Gram positive rods, suggestive of diphtheroids 06/10/2017 4:18 PM EDT [facility] Swab OTHER SPECIMEN TYPE / Unknown 06/07/2017 9:10 AM EDT 06/07/2017 9:11 AM EDT Narrative Organism Antibiotic Method Susceptibility Staphylococcus lugdunensis Ampicillin SUSCEPTIBILITY RESULT 4 ug/mL: Resistant Staphylococcus lugdunensis Cefazolin SUSCEPTIBILITY RESULT <=4 ug/mL: Susceptible Staphylococcus lugdunensis Ceftaroline SUSCEPTIBILITY RESULT Staphylococcus lugdunensis Ceftriaxone SUSCEPTIBILITY RESULT <=4 ug/mL: Susceptible Staphylococcus lugdunensis Chloramphenicol SUSCEPTIBILITY RESULT <=8 ug/mL: Susceptible Staphylococcus lugdunensis Ciprofloxacin SUSCEPTIBILITY RESULT <=1 ug/mL: Susceptible Staphylococcus lugdunensis Clindamycin SUSCEPTIBILITY RESULT >4 ug/mL: Resistant Staphylococcus lugdunensis Daptomycin SUSCEPTIBILITY RESULT <=0.25 ug/mL: Susceptible Staphylococcus lugdunensis Erythromycin SUSCEPTIBILITY RESULT >4 ug/mL: Resistant Staphylococcus lugdunensis Gentamicin SUSCEPTIBILITY RESULT <=1 ug/mL: Susceptible Staphylococcus lugdunensis Gentamicin synergy SUSCEPTIBILITY RESULT Staphylococcus lugdunensis Levofloxacin SUSCEPTIBILITY RESULT <=0.5 ug/mL: Susceptible Staphylococcus lugdunensis Linezolid SUSCEPTIBILITY RESULT <=0.5 ug/mL: Susceptible Staphylococcus lugdunensis Moxifloxacin SUSCEPTIBILITY RESULT <=0.25 ug/mL: Susceptible Staphylococcus lugdunensis Nitrofurantoin SUSCEPTIBILITY RESULT Staphylococcus lugdunensis Oxacillin SUSCEPTIBILITY RESULT 0.5 ug/mL: Susceptible Staphylococcus lugdunensis Penicillin SUSCEPTIBILITY RESULT 8 ug/mL: Resistant Staphylococcus lugdunensis Rifampin SUSCEPTIBILITY RESULT <=1 ug/mL: Susceptible Staphylococcus lugdunensis Streptomycin synergy SUSCEPTIBILITY RESULT Staphylococcus lugdunensis Synercid SUSCEPTIBILITY RESULT <=0.25 ug/mL: Susceptible Staphylococcus lugdunensis Tetracycline SUSCEPTIBILITY RESULT <=2 ug/mL: Susceptible Staphylococcus lugdunensis Tigecycline SUSCEPTIBILITY RESULT Staphylococcus lugdunensis Trimethoprim/Sulfameth oxazole SUSCEPTIBILITY RESULT <=0.5/9.5 ug/mL: Susceptible Staphylococcus lugdunensis Vancomycin SUSCEPTIBILITY RESULT 0.5 ug/mL: Susceptible Comment: Rifampin and Gentamicin should not be used alone for antimicrobial therapy. For methicillin resistant staphylococci, ciprofloxacin should also not be used alone. Felix Hernandez DPM MICROBIOLOGY - GENERAL ORD ERABLES Final Result [facility] [address] [place] [id number] documented in this encounter Visit Diagnoses Diagnosis Cellulitis of toe of right foot Cellulitis and abscess of toe, unspecified documented in this encounter Care Teams Charge Nurse Relationship Specialty Start Date End Date Chan Sim MD [address] [place] [address] [address] [place] [address] PCP - General Family Medicine 07/15/14 Christian Steiner MD [address] [place] [phone] Physician Internal Medicine-Interventional Cardiology 10/24/14 documented as of this encounter
--- OUTSIDE RECORDS SUMMARY | 2025-04-22 10:47 | XMS_ITS | Encounter Summary ---
Author Organization [facility] [place] [address] Care Team Providers Care Handbag Frames Inspector Name Role Phone Chan Sim MD Primary Care Provider [phone] Christian Steiner MD Unavailable [phone] Encounter Details Date Type Department Care Team (Late st Contact Info) Description 03/18/2025 Results Follow-Up [facility] [address] [place] [address] Lesli Giraldo, CURATORIAL ASSISTANT [address] [place] [address] BASIC METABOLIC PANEL, LIPID PANEL REFLEX, HEMOGLOBIN A1C, C-REACTIVE PROTEIN HIGH SENSITIVITY Social History Tobacco Use Types Packs/Day Years Used Date Smoking Tobacco: Former Cigarettes 1 33 1 992 - 2024 Smokeless Tobacco: Never Alcohol Use Standard Drinks/Week Comments No 0 (1 standard drink = 0.6 oz pur e alcohol) [facility] Utilities Answer Date Recorded In the [...] Date Recorded PHQ-2 Total Score 0 08/27/2024 [facility] [place] [facility] - Occupational Stress [...] money to get more. Never true 08/27/2024 [facility] IP Transportation Answer D ate Recorded [...] 9:30 AM EST Office Visit [facility] [address] [id number] Christian Steiner MD [address] [place] [id number] documented as of this encounter Goals Goal [...] on filedocumented in this encounter Care Teams Handbag Frames Inspector Relationship Specialty Start Date End Date Chan Sim MD [facility] [address] [place] [address] PCP - General Family Medicine 07/15/14 Christian Steiner MD [address] [place] [address] Physician Internal Medicine-Interventional Cardiology 10/24/14 documented as of this encounter
--- OUTSIDE RECORDS SUMMARY | 2025-04-22 10:47 | XMS_ITS | Clinical Summary ---
Author Organization [facility] Address [address] [place] [address] Phone Care Team Providers Care Monitoring Coordinator Name Role Phone Chan iSm MD Primary Care Provider [phone] Christian Steiner MD Unavailable [phone] Allergies Active Allergy Reactions Criticality Noted Date Comments Fexofenadine-Pseudoephedrine Fvq-Xcegjahxd-Fkikcoqayqopb Cetirizine Medications aspirin 81 mg Oral Tablet, ChewableIndication s:ASHD (arteriosclerotic heart disease),Essential hypertension,Famil ial hyperlipidemia,S/P CABG (coronary artery bypass graft) Take 1 Tablet by mouth daily. 90 Tablet 3 5 Active clopidogreL (PLAVIX) 75 mg Oral TabletIndications: ASHD (arteriosclerotic heart disease),Essential hypertension,Famil ial hyperlipidemia,S/P CABG (coronary artery bypass graft) Take 1 Tablet by mouth daily. 90 Tablet 3 5 Active cyanocobalamin 100 mcg Oral Tablet Take by mouth daily. Active carvediloL (COREG) 6.25 mg Oral Tablet Take 1 Tablet by mouth 2 times daily. 60 Tablet 3 5 Active ONETOUCH ULTRA TEST Misc Strip TEST BLOOD SUGAR 3 TIMES DAILY AND NEEDED 5 Active FARXIGA 10 mg Oral Tablet 5 Active albuterol (PROVENTIL HFA;VENTOLIN HFA) 90 mcg/actuation Inhl HFA Aerosol Inhaler INHALE 2 PUFFS INTO THE LUNGS EVERY 4 TO 6 HOURS NEEDED FOR SHORTNESS OF BREATH OR WHEEZING. Active fluticasone propionate (FLONASE) 50 mcg/actuation Nasl [place], Suspension 1 [place] in each nostril daily. Active atorvastatin (LIPITOR) 80 mg Oral TabletIndications: ASHD (arteriosclerotic heart disease),S/P CABG (coronary artery bypass graft),Essential hypertension,Famil ial hyperlipidemia Take 1 Tablet by mouth nightly. 90 Tablet 1 5 Active ezetimibe (ZETIA) 10 mg Oral TabletIndications: Familial hyperlipidemia Take 1 Tablet by mouth daily. 30 Tablet 11 Active losartan (COZAAR) 100 mg Oral TabletIndications: Essential hypertension Take 1 Tablet by mouth daily. 90 Tablet 1 5 Active Active Problems Problem Noted Date Diagnosed Date Coronary artery occlusion 08/26/2024 Coronary artery disease invo lving pauma coronary artery of pauma heart with unstable angina pectoris 08/25/2024 Type 2 diabetes mellitus wit hout complication, without long-term current use of insulin 08/25/2024 Assessment & Plan (12/27/2024 10:09 AM EDT): Abnormal coronary angiogram 08/24/2024 Mixed hyperlipidemia 08/24/2024 Chest pain 07/12/2014 Tobacco abuse 07/12/2014 Hypertension 07/12/2014 Resolved Problems Problem Noted Date Diagnosed Date Resolved Date Chest pain due to myocardial ischemia, unspecified ischemic chest pain type 08/24/2024 Encounters Date Type Department Care Team Description 04/08/2025 Telephone [facility]&[address] [address] Christian Steiner MD Medication Question (SWP, per rayo Clark to use inhaler) 03/21/2025 9:45 AM EDT Office Visit [address] [address] Christian Steiner MD ASHD (arteriosclerotic heart disease) (Primary Dx); Essential hypertension; Familial hyperlipidemia 03/21/2025 Travel 03/18/2025 Results Follow-Up [facility]&V [address] [address] Lesli Giraldo APRN BASIC METABOLIC PANEL, LIPID PANEL REFLEX, HEMOGLOBIN A1C, C-REACTIVE PROTEIN HIGH SENSITIVITY 03/15/2025 10:30 AM EDT - 03/15/2025 11:59 PM EDT Hospital Encounter [facility] [address] [place] [id number] ASHD (arteriosclerotic heart disease); S/P CABG (coronary artery bypass graft); Familial hyperlipidemia; Type 2 diabetes mellitus without complication, without long-term current use of insulin (HCC); Essential hypertension Discharge Disposition: Home or Self Care 02/26/2025 Results Follow-Up [facility] [place] [facility] [address] [address] Lesli Giraldo APRN EC ECHOCARDIOGRAM COMPLETE W DOPPLER AND COLOR FLOW MAPPING 02/25/2025 1:05 PM EDT - 02/25/2025 11:59 PM EDT Hospital Encounter [facility] [address] [place] [address] [address] [place] [address] Christian Steiner MD ASHD (arteriosclerotic heart disease); Essential hypertension; Familial hyperlipidemia; Type 2 diabetes mellitus without complication, without long-term current use of insulin (HCC) Discharge Disposition: Home or Self Care 02/05/2025 Patient Outreach [facility] [address] [place] [address] [place], [facility] Medication Management (Lipid lowering therapy) from Last 3 Months Immunizations Immunization Administration Dates Next Due Tdap 02/17/2018 Surgical History Surgery Date Site/Laterality Comments CHOLECYSTECTOMY 08/07/1993 CORONARY ARTERY BYPASS GRAFT 08/26/2024 Chest/N/A CORONARY ARTERY BYPASS GRAFT four times using left internal mammary artery one time, endoscopic harvest of right greater saphenous vein three times, endarterectomy of left anterior descending coronary artery, 3D TRANSESOPHAGEAL ECHOCARDIOGRAM, Sternal plating; Surgeon: Brian Feldman DO; Location: ED MAIN OR; Service: Open Heart Medical devices from this surgery are in the Medical Devices section. CARDIAC CATHETERIZATION Medical History Medical History Date Comments Hypertension Tobacco abuse CAD (coronary artery disease) Hyperlipidemia Family History Medical History Relation Name Comments No Known Problems Brother Heart Disease Father Heart Failure Father No Known Problems Maternal Aunt No Known Problems Maternal Grandfather No Known Problems Maternal Grandmother No Known Problems Maternal Uncle Heart Disease Mother Heart Failure Mother No Known Problems Other Heart Failure Paternal Aunt No Known Problems Paternal Grandfather No Known Problems Paternal Grandmother Heart Failure Paternal Uncle No Known Problems Sister Asthma Neg Hx Defects Neg Hx Bleeding Prob Neg Hx Breast Cancer Neg Hx Cancer Neg Hx Chorea Neg Hx Clotting Disorder Neg Hx Cystic Fibrosis Neg Hx Diabetes Neg Hx Down Syndrome Neg Hx Heart Defect Neg Hx High Cholesterol Neg Hx Hypertension Neg Hx Mental Retardation Neg Hx Migraines Neg Hx Osteoarthritis Neg Hx Ovarian Cancer Neg Hx PKU Neg Hx Rashes/Skin Problems Neg Hx Rheum Arthritis Neg Hx Seizures Neg Hx Sickle Cell Anemia Neg Hx Stroke Neg Hx Thyroid Disease Neg Hx Relation Name Status Comments Brother Father Maternal Aunt Maternal Grandfather Maternal Grandmother Maternal Uncle Mother Other Paternal Aunt Paternal Grandfather Paternal Grandmother Paternal Uncle Sister Social History Tobacco Use Types Packs/Day Years Used Date Smoking Tobacco: Former Cigarettes 1 33 1 - 2024 Smokeless Tobacco: Never Tobacco Cessation:Counseling Given: No Alcohol Use Standard Drinks/Week Comments No 0 (1 standard drink = 0.6 oz pur e alcohol) [facility] Utilities Answer Date Recorded In [...] Date Recorded PHQ-2 Total Score 0 08/27/2024 [facility] - [facility] [...] money to get more. Never true 08/27/2024 [facility] HRSN CMS IP Transportation Answer D ate Recorded In [...] on file Sexual Orientation Not on file Obstetrics History Para Term AB IAB SAB Ectopic Multiple Livin g Live Births 2 2 2 2 2 Date Outcome GA Total Labor Labor/2nd/3rd Weight Sex Type Anes PTL Elva A1 A5 Name Clin Term Vag-S pont Living Term Vag-S pont Living Last Filed Vital Signs Vital Sign Reading Time Taken Comments Blood Pressure 130/76 03/21/2025 9:26 AM EDT Pulse 82 03/21/2025 9:26 AM EDT Temperature 36.4 C (97.5 F) 10/11/2024 11:03 AM EST Respiratory Rate 12 10/11/2024 11:03 AM EST Oxygen Saturation 98% 03/21/2025 9:26 AM EDT Inhaled Oxygen Concentration - - Weight 85.7 kg (189 lb) 03/21/2025 9:26 AM EDT Height 172.7 cm (5' 8 ) 03/21/2025 9:26 AM EDT Body Mass Index 28.74 03/21/2025 9:26 AM EDT Plan of Treatment Upcoming Encounters Date Type Department Care Team (Late st Contact Info) Description 09/12/2025 9:30 AM EST Office Visit [facility] [address] [address] Christian Steiner MD [address] [place] [address] [place] [address] Health Maintenance Due Date Last Done Comments Diabetic Eye Exam 1992 Kidney Health: uACR 1992 Hepatitis B Vaccine (1 of 3 - 19+ 3-dose series) 1993 Pneumococcal Vaccine 50+ (1 of 2 - PCV) 1993 HPV/Pap Cotest 2004 Annual Wellness Exam 03/31/2016 03/31/2015 (Not Ente red) Cologuard 2019 Colon Cancer Screening 2019 Colonoscopy 2019 FIT 2019 Sigmoidoscopy 2019 Virtual Colonography 2019 Breast Cancer Screening 09/01/2022 09/01/2020 Zoster (1 of 2) 2024 Cervical Cancer Screening 10/12/2024 Pap Smear 10/12/2024 10/12/2021, 04/08, 04/30/2018, Additional history exists COVID-19 Vaccine ( - season) 2025 Influenza Vaccine (#1) 2025 Low Dose Lung Cancer Screening 08/24/2025 08/24/2024 Hemoglobin A1c 09/15/2025 03/15/2025, 11/06, 08/25/2024, Additional history exists Kidney Health: eGFR 03/15/2026 03/15/2025, 11/30/2024, 08/30/2024, Additional history exists Lipids 03/15/2026 03/15/2025, 11/06, 08/24/2024, Additional history exists DTaP/TDaP/Td (6 - Td or Tdap) 02/18/2028 02/17/2018, 03/08/1989, 01/17/1979, Additional history exists Meningococcal B Vaccine Aged Out No l onger eligible based on patient's age to complete this topic Goals Goal Patient Goal Type Associated Problems Recent Progress Patient-Stated? Author Blood Pressure < 140/90 Blood Pressure 130/76(2024 9:26 AM EDT) Roberto Carlos Bella MD Maintain a healthy diet, exercise regularly and maintain an ideal body weight General Roberto Carlos Bella MD Stay Tobacco Free Lifestyle Roberto Carlos Bella MD Medical Devices Implanted Type Area Lump Maker Device Identifier Shelf Expiration Date Model / Serial / Lot Adhesive Bioglue 5ml Bsa Tiss Glue Skin 5mm Syr F/Dlv Sys Ea - [id number] Implanted:Qty: 1 on 08/26/2024 by Brian Feldman, DO at [facility] N/A: Heart CRYOLIFE 09/12/2024 [id number] / / [id number] Plate Box 4-Hole Sternalock Keyshawn - [id number] Implanted:Qty: 2 on 08/26/2024 by Brian Feldman, DO at [facility] N/A: Sternum BIOMET:CÉSAR ELODIA SURG [id number] / / Screw Locking Cancellous Self Drilling 2.4mm X 14mm (Gold) - [id number] Implanted:Qty: 8 on 08/26/2024 by Brian Feldman, DO at [facility] N/A: Sternum BIOMET:CÉSAR ELODIA SURG [id number] / / Procedures Procedure Name Priority Date/Time Associated Diagnosis Comments C-REACTIVE PROTEIN HIGH SENSITIVITY Routine 03/15/2025 10:41 AM EDT ASHD (arteriosclerotic heart disease) S/P CABG (coronary artery bypass graft) Essential hypertension HEMOGLOBIN A1C Routine 03/15/2025 10:41 AM EDT Type 2 diabetes mellitus without complication, without long-term current use of insulin (HCC) LIPID PANEL REFLEX Routine 03/15/2025 10 :41 AM EDT Familial hyperlipidemia BASIC METABOLIC PANEL Routine 03/15/2025 10:41 AM EDT ASHD (arteriosclerotic heart disease) S/P CABG (coronary artery bypass graft) EC ECHOCARDIOGRAM COMPLETE W DOPPLER AND COLOR FLOW MAPPING Routine 02/25/2025 1:54 PM EDT ASHD (arteriosclerotic heart disease) Essential hypertension Familial hyperlipidemia Type 2 diabetes mellitus without complication, without long-term current use of insulin (HCC) CT CHEST WO CONTRAST [place] 08/24/2024 1:08 PM EST [facility] CYTOLOGY REQUEST (PAP ONLY) Routine 10/12/2021 2:54 PM EST Well woman exam with routine gynecological exam MM MAMMO DIGITAL CARLENE SCREEN BILAT Routine 09/01/2020 9:50 AM EST Encounter for screening mammogram for malignant neoplasm of breast from Last 3 Months or Most Recently Relevant to Health Maintenance Results * LIPID PANEL REFLEX (03/15/2025 10:41 AM EDT) Cholesterol 143 <200 mg/dL 03/15/2025 12:59 PM EDT [facility] [employer] [facility] Comment: < 200 Desirable 200 - 239 Borderline High >= 240 High Triglyceride 138 <150 mg/dL 03/15/2025 12:59 PM EDT [facility] Comment: < 150 Normal 150 - 199 Borderline High 200 - 499 High >= 500 Very High HDL 42 >=40 mg/dL 03/15/2025 12:59 PM EDT [facility] Comment: > 60 Optimal 40 - 60 Acceptable < 40 Low LDL Calculated 77 <100 mg/dL 03/15/2025 12:59 PM EDT [facility] Comment: < 100 Optimal 100 - 129 Near or above optimal 130 - 159 Borderline High 160 - 189 High >= 190 Very High The National Institutes of Health (NIH) equation is used for all lipid panels that report calculated LDL (LDL-C). Non-HDL-C Calculated 101 <=129 mg/dL 03/15/2025 12:59 PM EDT [facility] Comment: <130 Desirable 130-159 Above Desirable 160-189 Borderline High 190-219 High >= 220 Very High Fasting Specimen? Yes None 025 12:59 PM EDT [facility] Blood VENOUS BLOOD / Unknown Venipuncture / Unknown 03/15/2025 10:41 AM EDT 03/15/2025 10:43 AM EDT us Christian Steiner MD CHEMISTRY ORDERABLES Final Resu lt [facility] [address] [facility] , [place] [address] * C-REACTIVE PROTEIN HIGH SENSITIVITY (03/15/2025 10:41 AM EDT) Pathologist [facility] CRP-HS 1.54 <=3.00 mg/L 03/15/2025 12:58 PM EDT [facility] Blood VENOUS BLOOD / Unknown Venipuncture / Unknown 03/15/2025 10:41 AM EDT 03/15/2025 10:43 AM EDT Narrative [facility] - 03/15/2025 12:58 PM EDT hsCRP Level Relative Risk < 1.0 Low 1.0 - 3.0 Average > 3.0 High Christian Steiner MD CHEMISTRY ORDERABLES Final Resu Performing Organization Address [facility] de Phone Number [facility] [address] [place] [address], [place] [address] * (ABNORMAL) HEMOGLOBIN A1C (03/15/2025 10:41 AM EDT) Pathologist [facility] Hgb A1C 7.6(H) 4.2 - 5.6 % 03/15/2025 12:42 PM EDT [facility] Est. Avg Glucose 171 mg/dL 03/15/2025 12:42 PM EDT [facility] Blood VENOUS BLOOD / Unknown Venipuncture / Unknown 03/15/2025 10:41 AM EDT 03/15/2025 10:43 AM EDT Jean [facility] - 03/15/2025 12:42 PM EDT REFERENCE RANGE: Normal: 4.0-5.6% Pre-diabetes: 5.7-6.4% Provisional diagnosis of diabetes: >6.4% Hgb F>10% and anything which shortens red cell survival, such as hemolytic anemia, or unstable hemoglobin variants such as HbSS, HbSC, or HbCC, will lower the HbA1c value associated with a given level of glycemic control. us Christian Steiner MD CHEMISTRY ORDERABLES Final Resu lt Performing Organization Address [facility]/ZIP Co de Phone Number [facility] [address] [facility] , [place] [address] * (ABNORMAL) BASIC METABOLIC PANEL (03/15/2025 10:41 AM EDT) Sodium 140 136 - 145 mmol/L 03/15/2025 12:59 PM EDT [facility] Potassium 3.9 3.5 - 5.0 mmol/L 03/15/2025 12:59 PM EDT [facility] Chloride 105 98 - 107 mmol/L 03/15/2025 12:59 PM EDT [facility] Total CO2 24 22 - 29 mmol/L 03/15/2025 12:59 PM EDT [facility] Anion Gap 11 7 - 16 mmol/L 03/15/2025 12:59 PM EDT [facility] Calcium 9.5 8.6 - 10.4 mg/dL 03/15/2025 12:59 PM EDT [facility] Glucose Lvl 158(H) 70 - 99 mg/dL 03/15/2025 12:59 PM EDT [facility] BUN 10 6 - 20 mg/dL 03/15/2025 12:59 PM EDT [facility] Creatinine 0.55 0.51 - 1.30 mg/dL 03/15/2025 12:59 PM EDT [facility] eGFR (CKD-EPIcr 2020) 111 >=60 mL/min/1.7 3 m2 03/15/2025 12:59 PM EDT [facility] Comment:Estimated GFR was ca lculated using the CKD-EPIcr (2020) equation refit without race. The equation is recommended by the National Kidney Foundation - [place] Society of Nephrology Task Force. Blood VENOUS BLOOD / Unknown Venipuncture / Unknown 03/15/2025 10:41 AM EDT 03/15/2025 10:43 AM EDT us Christian Steiner MD CHEMISTRY ORDERABLES Final Resu lt [facility] [address] [facility] , [place] [address] * EC ECHOCARDIOGRAM COMPLETE W DOPPLER AND [...] MD IMG ECHO ORDERABLES Final Resul t * CT CHEST WO CONTRAST (08/24/2024 1:08 PM EST) Anatomical Region Laterality Modality Chest Computed Tomogra phy 08/24/2024 1:08 PM EST Impressions 08/24/2024 1:20 PM EST No acute finding in the chest. 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 There is a left adrenal adenoma. - Note: Radiology results need to be interpreted within a comprehensive clinical context. If you have questions about the radiology report, please contact the office of the ordering clinician. Narrative 08/24/2024 1:[address] CHEST WITHOUT CONTRAST, 08/24/2024 1:08 PM CLINICAL HISTORY: -Cardiac Surgery work up. COMPARISON: AP chest x-ray dated 08/24/2024. PROCEDURE COMMENTS: Multi-detector CT of the chest with multiplanar reconstructions per protocol. No contrast given. Dose 1 : CT DLP Total : 494.41 mGycm DLP Spiral Max : 491.98 mGycm Maximum CTDI Vol : 13.64 mGy FINDINGS: Trachea and central airways are patent and normal caliber. There is no pneumothorax. There are no pleural effusions. The lungs are clear. There are no suspicious pulmonary nodules or masses. The esophagus is normal. There is an incidental aberrant right subclavian artery. This courses posterior to the esophagus. The thoracic aorta is normal caliber. There is no pericardial effusion. There is no axillary or the mediastinal lymphadenopathy. There is a 2.4 x 1.7 cm left adrenal nodule. This measures approximately 0 Hounsfield units and is attributed to an adrenal adenoma. The remainder of the upper abdomen is normal. Coronary artery calcification: Moderate. Procedure Note Savanah Hansen MD - 08/24/2024 CT CHEST WITHOUT CONTRAST, 08/24/2024 1:08 PM CLINICAL HISTORY: -Cardiac Surgery work up. COMPARISON: AP chest x-ray dated 08/24/2024. PROCEDURE COMMENTS: Multi-detector CT of the chest with multiplanar reconstructions per protocol. No contrast given. Dose 1 : CT DLP Total : 494.41 mGycm DLP Spiral Max : 491.98 mGycm Maximum CTDI Vol : 13.64 mGy FINDINGS: Trachea and central airways are patent and normal caliber.There is no pneumothorax. There are no pleural effusions. The lungs are clear.There are no suspicious pulmonary nodules or masses. The esophagus is normal. There is an incidental aberrant rightsubclavian artery. This courses posterior to the esophagus. The thoracic aorta isnormal caliber. There is no pericardial effusion. There is no axillary or the mediastinal lymphadenopathy. There is a 2.4 x 1.7 cm left adrenal nodule. This measures approximately0 Hounsfield units and is attributed to an adrenal adenoma. The remainder ofthe upper abdomen is normal. Coronary artery calcification: Moderate. IMPRESSION: No acute finding in the chest. 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 There is a leftadrenal adenoma. - Note: Radiology results need to be interpreted within a comprehensiveclinical context. If you have questions about the radiology report, please contactthe office of the ordering clinician. us Gino Shanthi Blayne [facility] [facility] [place] ORDERABLES Final Result * [facility] CYTOLOGY REQUEST (PAP ONLY) (10/12/2021 2:54 PM EST) CASE REPORT Gynecologic Cytology Report Case: [id number] Authorizing Provider: Eric Gross MD Collected: 10/12/20211453 [facility]: [facility]20211453 First Screen: Rani Crowell, CT Specimen: LIQUID-BASED PAP - CERVICAL/ENDOCERV ICAL, Cervix, Endocervical 10/13/2021 4:01 PM EST [facility] PAP FINAL DIAGNOSIS Negative for intraepithelial lesion or malignancy 10/13/2021 4:01 PM EST [facility] at 1601 EST MICROSCOPIC DESCRIPTION Microscopic examination is performed and the findings corroborate the diagnosis. 10/13/2021 4:01 PM EST [facility] PAP SMEAR ADEQUACY Satisfactory for evaluation 10/13/2021 4:01 PM EST [facility] ENDOCERVICAL T-ZONE Transformation zone absent. 10/13/2021 4:01 PM EST [facility] EMBEDDED IMAGES 4:01 PM EST [facility] PAP DISCLAIMER The Pap Smear is a screening test that aids in the detection of cervical cancer and cancer precursors. Both false positive and false negative results can occur. The test should be used at regular intervals, and positive results should be confirmed before definitive therapy. Processed using the ThinPrep Benefit Director Automated cytology screening device (Localisto). 10/13/2021 4:01 PM EST [facility] Thin Prep ENDOCERVICAL STRUCTURE / Unknown 10/12/2021 2:54 PM EST 10/12/2021 2:54 PM EST us Eric Gross MD CYTOLOGY ORDERABLES Final Re sult [facility] [address] [place] [address] * MM MAMMO DIGITAL CARLENE SCREEN BILAT (09/01/2020 9:50 AM EST) Anatomical Region Laterality Modality Breast Bilateral Mammography 09/01/2020 3:17 PM EST Impressions 09/01/2020 3:17 PM EST Negative (GLI-Nacilopv-9) ~ RECOMMENDATION: Routine screening mammogram in 1 year. ~ DISCLAIMER * Any patient with a palpable abnormality, unexplained by breast imaging, should be managed on clinical basis by the attending physician. * Breast imaging has a false negative rate of 15%. * The patient was notified by mail of the results of this examination. *The patient's information was entered into a reminder system with a target due date for the next mammogram, in accordance with the [place] [employer] and the Society of Breast Imaging recommendations. Narrative 09/01/2020 3:17 PM EST Procedure:MM MAMMO DIGITAL CARLENE SCREEN BILAT ~ Reason for exam: screening, asymptomatic. Z12.31-Encounter for screening mammogram for malignant neoplasm of [id number] ~ COMPARISON STUDIES none available ~ MM MAMMO DIGITAL CARLENE SCREEN BILAT Bilateral CC and MLO view(s) were taken. There are scattered fibroglandular densities. No mammographic evidence of malignancy. ~ Procedure Note Kevon Masterson MD - 09/01/2020 Procedure:MM MAMMO DIGITAL CARLENE SCREEN BILAT ~ Reason for exam: screening, asymptomatic. Z12.31-Encounter for screening mammogram for malignant neoplasm of [id number]-CM ~ COMPARISON STUDIES none available ~ MM MAMMO DIGITAL CARLENE SCREEN BILAT Bilateral CC and MLO view(s) were taken. There are scattered fibroglandular densities. No mammographic evidenceof malignancy. ~ IMPRESSION: Negative (LQB-Wyuhzywp-8) ~ RECOMMENDATION: Routine screening mammogram in 1 year. ~ DISCLAIMER * Any patient with a palpable abnormality, unexplained by breast imaging, should be managed on clinical basis by the attending physician. * Breast imaging has a false negative rate of 15%. * The patient was notified by mail of the results of this examination. *The patient's information was entered into a reminder system with atarget due date for the next mammogram, in accordance with the [employer] [place] [employer] and the Society of Breast Imaging recommendations. Olivia Miller ART COORDINATOR IMG MAMMOGRAPHY ORDERABLES Fin al Result from Last 3 Months or Most Recently Relevant to Health Maintenance Insurance ANTHEM PPO ANTHEM PPO ANTHEM PPO Advance Directives For more information, please contact: [phone] * Full Code (Latest Code Status on File) Date Activated Date Inactivated Comments 08/24/2024 3:38 PM 08/30/2024 5:58 PM * Full Code Date Activated Date Inactivated Comments 08/24/2024 10:45 AM 08/24/2024 3:38 PM * Full Code Date Activated Date Inactivated Comments 08/24/2024 10:45 AM 08/24/2024 10:45 AM Care Teams Monitoring Coordinator Relationship Specialty Start Date End Date Chan Sim MD [address] [facility] [address] [place] [address] PCP - General Family Medicine 07/15/14 Christian Steiner MD [address] [place] [id number] Physician Internal Medicine-Interventional Cardiology 10/24/14
== END 2025-04-21 23:59 ==
LOC: LAB.DROPOF 04-22 10:27
PROVIDERS: PCP Nurse Practitioner; Visit Provider Nurse Practitioner
DX: I25.10 Atherosclerotic heart disease of native coronary artery without angina pectoris (principal); E11.9 Type 2 diabetes mellitus without complications; E78.5 Hyperlipidemia, unspecified; I10 Essential (primary) hypertension
CPT/HCPCS: 80053; 80061; 82043; 82570; 82607; 83036; 85025